=== PATIENT | male | born 1985 | race Two or more races ===

== ENCOUNTER 2018-05-15 00:25 | Inpatient (IN) | payer OTHER ==
[2018-05-15] MEDS: NS 1,000 ML IV (00:45)
[2018-05-15 00:50] LABS: BEDSIDE GLUCOSE 82 MG/DL (70-105)
[2018-05-15 00:51] LABS: ABG BASE EXCESS -4.1 (-2.0-2.0); ABG HCO3 20.6 MEQ/L (22.0-26.0); ABG O2 SATURATION 96.6 % (95.0-99.0); ABG PARTIAL PRESSURE CO2 37.1 mmHg (35.0-45.0); ABG PARTIAL PRESSURE O2 89.6 mmHg (75.0-100.0); ABG STANDARD HCO3 21.1 MEQ/L (22.0-26.0); ABG TOTAL CO2 21.8 MEQ/L (22.0-29.0); ABG pH (ARTERIAL) 7.363 UNITS (7.350-7.450)
[2018-05-15] MEDS: SODIUM BICARBONATE 8.4% INJ 50 ML SYRINGE IV ×2 (01:00→01:49)
[2018-05-15 01:02] LABS: BASO % 0.4 % (0.0-1.0); EOS # 0.2 10^3/uL (0.0-0.50); EOS % 2.5 % (0.0-3.0); HEMOGLOBIN 15.2 g/dl (13.5-17.5); IMMATURE GRANULOCYTE % 0.1 % (0-3.0); LYMPH # 3.3 10^3/uL (1.5-4.5); MEAN CORPUSCULAR HGB CONC 33.8 g/dl (32.0-36.5); MEAN CORPUSCULAR VOLUME 88.8 fl (80.0-96.0); MONO # 0.8 10^3/uL (0.0-0.8); MONO % 9.7 % (0.0-5.0); NEUTROPHILS # 3.4 10^3/uL (1.8-7.7); NEUTROPHILS % 44.3 % (36.0-66.0); PLATELET COUNT, AUTOMATED 294 10^3/uL (150-450); RED BLOOD COUNT 5.07 10^6/uL (4.30-6.10); WHITE BLOOD COUNT 7.8 10^3/uL (4.0-10.0)
[2018-05-15 01:29] LABS: AMPHETAMINES LEVEL URINE NEGATIVE (NEGATIVE); BARBITURATES URINE NEGATIVE (NEGATIVE); BENZODIAZEPINES URINE NEGATIVE (NEGATIVE); CANNABINOIDS URINE NEGATIVE (NEGATIVE); COCAINE METABOLITE URINE NEGATIVE (NEGATIVE); METHADONE URINE NEGATIVE (NEGATIVE); OPIATES URINE NEGATIVE (NEGATIVE); PHENCYCLIDINE URINE NEGATIVE (NEGATIVE)
[2018-05-15 01:32] LABS: ALBUMIN 4.7 GM/DL (3.2-5.2); ALBUMIN/GLOBULIN RATIO 1.52 (1.00-1.93); ALKALINE PHOSPHATASE 62 U/L (45-117); ALT/SGPT 47 U/L (12-78); ANION GAP 10 MEQ/L (8-16); AST/SGOT 22 U/L (7-37); BILIRUBIN,DIRECT 0.1 MG/DL (0.0-0.2); BILIRUBIN,TOTAL 0.4 MG/DL (0.2-1.0); BLOOD UREA NITROGEN 16 MG/DL (7-18); CALCIUM LEVEL 8.6 MG/DL (8.5-10.1); CARBON DIOXIDE LEVEL 25 MEQ/L (21-32); CHLORIDE LEVEL 112 MEQ/L (98-107); CPK CREATINE PHOSPHOKINASE 293 U/L (39-308); CREATININE FOR GFR 1.17 MG/DL (0.70-1.30); ETHYL ALCOHOL (ETHANOL) 0.108 % (0.000-0.010); GLOMERULAR FILTRATION RATE > 60.0 (>60); GLUCOSE, FASTING 83 MG/DL (70-100); POTASSIUM SERUM 3.2 MEQ/L (3.5-5.1); SALICYLATE LEVEL < 1.7 MG/DL (5.0-30.0); SODIUM LEVEL 147 MEQ/L (136-145); TOTAL PROTEIN 7.8 GM/DL (6.4-8.2)
[2018-05-15 01:33] LABS: ACETAMINOPHEN LEVEL < 2.0 UG/ML (10.0-30.0)
[2018-05-15] MEDS ORDERED: ACETAMINOPHEN TAB 650MG DOSE (2X325MG) PO (08:00)
[2018-05-15] MEDS ORDERED: MOM 30ML SUSPENSION UDC PO (08:00)
[2018-05-15] MEDS ORDERED: traZODone 50 MG TAB PO (08:00)
[2018-05-15] MEDS ORDERED: MAALOX 30 ML SUSP *UDC PO (08:00)
[2018-05-16 10:47] LABS: ANION GAP 9 MEQ/L (8-16); BLOOD UREA NITROGEN 17 MG/DL (7-18); CALCIUM LEVEL 8.7 MG/DL (8.5-10.1); CARBON DIOXIDE LEVEL 26 MEQ/L (21-32); CHLORIDE LEVEL 110 MEQ/L (98-107); CREATININE FOR GFR 1.17 MG/DL (0.70-1.30); GLOMERULAR FILTRATION RATE > 60.0 (>60); GLUCOSE, FASTING 81 MG/DL (70-100); POTASSIUM SERUM 4.2 MEQ/L (3.5-5.1); SODIUM LEVEL 145 MEQ/L (136-145)
[2018-05-16] MEDS: NICOTINE 21MG/24HR 1 EA TRANSDERMAL TD (16:23)
[2018-05-17] MEDS: NICOTINE 21MG/24HR 1 EA TRANSDERMAL TD (10:00)
== END 2018-05-17 13:00 | disposition home or self-care (01) | DRG 881 ==
LOC: M ED 00:25 → M ED INP 07:55 → M PSY 08:32
DX: F43.21 Adjustment disorder with depressed mood (principal); R45.851 Suicidal ideations; F10.10 Alcohol abuse, uncomplicated; F17.210 Nicotine dependence, cigarettes, uncomplicated